=== PATIENT | female | born 1990 | race Caucasian/White ===

== ENCOUNTER 2019-11-06 12:33 | Emergency (ER) | payer OTHER, SELFPAY ==
[2019-11-06 12:41] VITALS: BP 134/93; PULSE 98; RESP 20; TEMP 36.9; O2SAT 100; BMI 30.4
--- NOTE | 2019-11-06 12:44 | DI.RAD.S_ITS ---
PROCEDURE: XR FOOT LT MIN 3V INDICATIONS: fall, foot pain TECHNIQUE: 3 views of the foot were acquired. COMPARISON: None. FINDINGS: Bones: No fractures or dislocations. No suspicious bony lesions. Soft tissues: No tibiotalar joint effusion. Mild soft tissue swelling on the dorsal aspect of the foot is evident. IMPRESSION: No acute fractures of the foot are appreciated. Dictated by: Hugo Live M.D. on 11/06/2019 at 12:09 Approved by: Hugo Live M.D. on 11/06/2019 at 12:10
[2019-11-06] MEDS: KETOROLAC 60 MG/2 ML VIAL 30 MG IM (14:33)
[2019-11-06 14:52] VITALS: BP 131/82; PULSE 78; RESP 14; O2SAT 100
--- NOTE | 2019-11-06 15:19 | ED.LOWEXIN ---
HPI - Extremity Injury (Lower) <NILE Venegas - Last Filed: 11/06/19 15:23> General Chief Complaint: Extremity Injury, Lower Stated Complaint: hurt foot at work - left Time Seen by Provider: 11/06/19 13:30 Source: patient Mode of arrival: Ambulatory Limitations: no limitations History of Present Illness HPI Narrative: The patient is a 29-year-old female presents with a chief complaint of left foot pain. She states that happened approximately 3 weeks ago, when she slipped at work and rotated her foot in. She initially had ankle pain, but no longer does. She was able to ambulate after, she is concerned that is not getting better. She states that the pain is below her pinky toe on the side of her foot. She has tried some ibuprofen or Tylenol for pain though nothing consistently. She denies any previous injuries to this area. Related Data Previous Rx's Medication Instructions Recorded ketorolac 10 mg PO TID PRN #15 tab 11/06/19 Allergies Allergy/AdvReac Type Severity Reaction Status Date / Time No Known Drug Allergies Allergy Verified 11/06/19 12:43 Review of Systems <NILE Venegas - Last Filed: 11/06/19 15:23> Review of Systems Narrative: GENERAL: Denies chills, fatigue, malaise, fever, sweats. HEENT: Denies sinus pain, ear pain, sore throat, difficulty swallowing, dizziness. RESPIRATORY: Denies dyspnea, cough, wheezing, hemoptysis, sputum. CARDIOVASCULAR: Denies chest pain, palpitations, orthopnea, edema, GASTROINTESTINAL: Denies nausea, vomiting, abdominal pain, diarrhea, constipation, melena. : Denies dysuria, frequency, incontinence, hematuria, urinary retention. MUSCULOSKELETAL: See HPI SKIN: See HPI NEUROLOGIC: Denies weakness, headache, numbness, change in speech, confusion, seizures, incoordination. PSYCHIATRIC: No concerning psychosocial issues. 12 point review of systems is negative except for those stated above Patient History <NILE Venegas - Last Filed: 11/06/19 15:23> Social History Smoking Status: Never smoker Smoking Status: Never smoker alcohol intake frequency: holidays/special occasions only Substance Use Type: does not use Exam <NILE Venegas - Last Filed: 11/06/19 15:23> Narrative Exam Narrative: GENERAL: This is a well-nourished, well-developed patient, in no acute distress HEAD: Atraumatic. Normocephalic. No temporal or scalp tenderness. EYES: Pupils equal round and reactive. Extraocular motions intact. No scleral icterus. No injection or drainage. ENT: Nose without bleeding, purulent drainage or septal hematoma. Airway patent. NECK: Trachea midline. No JVD or lymphadenopathy. Supple, nontender, no meningeal signs. CARDIOVASCULAR: Regular rate and rhythm RESPIRATORY: No cough. No increased respiratory effort. No accessory muscle use. EXTREMITIES: Pain to palpation lateral aspect of left foot distal to 5th toe. Positive pedal pulses left foot. Capillary refill less than 2 seconds all toes left foot. Slight ecchymosis noted distal to lateral malleolus. BACK: Nontender without deformity or crepitance. No flank tenderness. NEURO: AOx3. SKIN: No rash or erythema on visible skin other than extremity exam Initial Vital Signs Initial Vital Signs: Vital Signs Temperature 98.5 F 11/06/19 12:41 Pulse Rate 98 H 11/06/19 12:41 Respiratory Rate 20 11/06/19 12:41 Blood Pressure 134/93 H 11/06/19 12:41 Pulse Oximetry 100 11/06/19 12:41 <Catherine Gaston DO - Last Filed: 11/08/19 08:25> Initial Vital Signs Initial Vital Signs: Vital Signs Temperature 98.5 F 11/06/19 12:41 Pulse Rate 98 H 11/06/19 12:41 Respiratory Rate 20 11/06/19 12:41 Blood Pressure 134/93 H 11/06/19 12:41 Pulse Oximetry 100 11/06/19 12:41 Procedures <NILE Venegas - Last Filed: 11/06/19 15:23> Orthopedic Splinting/Casting Injury #1: Lower Extremity Injury Location: foot Lower Extremity Immobilizer: post-op shoe Post splinting neuro exam: intact Post splinting vascular exam: intact Placed by: Nursing Scores <NILE Venegas - Last Filed: 11/06/19 15:23> GCS Aide coma scale eye opening: Spontaneous Aide coma scale verbal response: Orientated [place] coma scale motor response: Obey commands Aide coma scale total score: 15 Course <NILE Venegas - Last Filed: 11/06/19 15:23> Orders Ordered: Discontinued Medications Ketorolac Tromethamine (Toradol) 30 mg IM NOW ONE Stop: 11/06/19 13:51 Last Admin: 11/06/19 14:33 Dose: 30 mg Documented by: NICO Vital Signs Vital signs: Vital Signs - 8 hr 11/06/19 12:41 11/06/19 14:52 Temperature 98.5 F Pulse Rate 98 H 78 Respiratory Rate 20 14 Blood Pressure 134/93 H Blood Pressure [Right Arm] 131/82 Pulse Oximetry 100 100 <Catherine Gaston DO - Last Filed: 11/08/19 08:25> Orders Ordered: Discontinued Medications Ketorolac Tromethamine (Toradol) 30 mg IM NOW ONE Stop: 11/06/19 13:51 Last Admin: 11/06/19 14:33 Dose: 30 mg Documented by: NICO Vital Signs Vital signs: Vital Signs - 8 hr 11/06/19 12:41 11/06/19 14:52 Temperature 98.5 F Pulse Rate 98 H 78 Respiratory Rate 20 14 Blood Pressure 134/93 H Blood Pressure [Right Arm] 131/82 Pulse Oximetry 100 100 MDM - Extremity Injury (Lower) <NILE Venegas - Last Filed: 11/06/19 15:23> Imaging Data Extremity x-ray #1: Radiologist's Impression: [address] [place] [address] XRay Report Signed Patient: Elham Story LMR#: [id number] : 1990Acct:[id number] Age/Sex: 29 / FDate of Service: 11/06/19 Loc: ED Accession Number: [id number] Procedure: XR foot LT min 3V Ordering Provider: Catherine Gaston D.O. PROCEDURE: XR FOOT LT MIN 3V INDICATIONS: fall, foot pain TECHNIQUE: 3 views of the foot were acquired. COMPARISON: None. FINDINGS: Bones: No fractures or dislocations. No suspicious bony lesions. Soft tissues: No tibiotalar joint effusion. Mild soft tissue swelling on the dorsal aspect of the foot is evident. IMPRESSION: No acute fractures of the foot are appreciated. Dictated by: Hugo Live M.D. on 11/06/2019 at 12:09 Approved by: Hugo Live M.D. on 11/06/2019 at 12:10 [facility] Narrative Medical decision making narrative: The patient is a 21-year-old female who presents with a chief complaint of left foot pain for several weeks. She is neurovascularly intact throughout her stay in the emergency department, is no pain to palpation lateral or medial malleoli. She does have pain to palpation distal to her 5th toe of her left foot, and has a negative x-ray for any acute fracture. She is neurovascularly intact her stay in the emergency department, stated that she responded well to the above therapies. She is placed in a postoperative shoe, given light duty for 1 week, I discussed at length follow up with primary care provider and/or Soo james I provider. Discussed coming back to ER for acute concerns. Patient has no questions or concerns upon discharge and states understanding return precautions as well as follow-up care. Discharge Plan Departure Patient Disposition: Home Clinical Impression: Foot sprain Qualifiers: Encounter type: initial encounter Laterality: left Qualified Code(s): S93.602A - Unspecified sprain of left foot, initial encounter Discharge Date/Time: 11/06/19 14:57 Instructions: How To Perform RICE (Rest, Ice, Compress, Elevate), DI for Foot Pain Activity Restrictions/Additional Instructions: As I discussed, your x-ray shows no acute fracture. This does not rule out a soft tissue injury such as a ligament or tendon injury. It is important that you follow up with primary care provider, especially if worsening or no improvement. There can be fractures that did not show up on initial x-ray. I have given you a prescription of Toradol. This is an NSAID. Do not combine it with other NSAIDs such as Aleve or ibuprofen. I suggest taking it with some food, as it can irritate your stomach. Please follow up with [facility]. They can help you arrange a follow-up provider. I also gave you contact information for the [facility] resource paraprofessional. They can help you find a primary care provider in the the area. I also suggest rest ice compression elevation as well as Tylenol as needed and able Prescriptions: New ketorolac 10 mg tablet 10 mg PO TID PRN (Reason: pain) Qty: 15 RF: 0 Referrals: [facility] [Outside] Stand Alone Forms: Work Release Note <Catherine Gaston, DO - Last Filed: 11/08/19 08:25> Cosign ED Attending Cosbraydenature Attestation: I was immediately available in the department for consultation. Documentation has been reviewed. I agree with assessment and plan.
== END 2019-11-06 14:57 | disposition home or self-care (01) ==
PROVIDERS: Emergency Provider Nurse Practitioner Family
DX: S93.602A Unspecified sprain of left foot, initial encounter (principal); Y99.0 Civilian activity done for income or pay
CPT/HCPCS: 73630; 96372; 99283; 99284; J1885